=== PATIENT | female | born 1995 | race Caucasian/White ===

== ENCOUNTER 2017-08-08 14:19 | Day surgery (SDC) | payer OTHER ==
[2017-08-08 15:40] VITALS: BMI 35.2
[2017-08-08 15:49] LABS: Amnisure Test No Membranes Rupture (No Rupture)
--- NOTE | 2017-08-08 16:51 | PDOC.LDHP ---
Labor and Delivery H&P Chief complaint: contractions HPI: 21 y/o G1 at 29w2d, patient of Angeles Lemus, presents with discharge since yesterday. Denies any new partners. Discharge has been soaking through her underwear but she has not been using a pad. Denies VB, ctx, or decreased FM. ROS neg for HEENT, cv, pulm, gi, gu, neuro, psych, musculoskeletal or constitutional symptoms other than mentioned above. OB History Details: First Current complications: none Previous surgical history: none Allergies/Adverse Reactions: Allergies Allergy/AdvReac Type Severity Reaction Status Date / Time No Known Allergies Allergy Unverified 08/08/17 15:40 Social history: none - Physical Exam Vital signs reviewed and normal: yes General: NAD, resting Lungs: nonlabored breathing Abdomen: gravid FHT: category 1 (Normal baseline, moderate variability, +10x10 accels, no decels ) [place] contractions every: none - OB Labs Additional Labs: Laboratory Tests 08/08/17 15:35 Amnio Swab Test No Membranes Rupture Microbiology 08/08/17 15:35 Vaginal Vaginitis Screen - Final - + for Kerrie, Gardnerella - for Trichomonas - Assessment 21 y/o G1 at 29w2d with yeast and BV. status reassuring with AGA reactive NST. - Plan -: Given Rx for Flagyl and told to use Monistat 7. D/c home with precautions. Advised to keep all appointments.
== END 2017-08-08 16:48 | disposition home or self-care (01) ==
LOC: L&D/OP 14:19
PROVIDERS: ATTEND Obstetrics & Gynecology
DX: O23.593 Infection of other part of genital tract in pregnancy, third trimester (principal); N76.0 Acute vaginitis; O98.813 Other maternal infectious and parasitic diseases complicating pregnancy, third trimester; B37.9 Candidiasis, unspecified; Z79.899 Other long term (current) drug therapy; Z3A.29 29 weeks gestation of pregnancy
CPT/HCPCS: 84112; 87480; 87510; 87660

== ENCOUNTER 2017-09-04 17:20 | Day surgery (SDC) | payer OTHER ==
[2017-09-04 17:56] VITALS: BMI 36.4
--- NOTE | 2017-09-04 18:14 | PDOC.LDHP ---
Labor and Delivery H&P Chief complaint: abdominal pain, decreased movement HPI: 21 y/o G1 at 33w1d, patient of Dr. Cochran, presents with cramping, low back pain , and decreased movement. Has not had a bowel movement in a week. Has tried eating prunes, raisins, broccoli, and apple juice without success. Denies VB, LOF, ctx, or other concerns. ROS neg for HEENT, cv, pulm, gi, gu, neuro, psych, skin, musculoskeletal or constitutional symptoms other than mentioned above. OB History Details: first Current complications: none Current medications: pre-miki vitamins Previous surgical history: none Allergies/Adverse Reactions: Allergies Allergy/AdvReac Type Severity Reaction Status Date / Time metronidazole [From Flagyl] Allergy Severe Hives Verified 09/04/17 17:55 - Physical Exam Vital signs reviewed and normal: yes General: NAD Lungs: nonlabored breathing Abdomen: gravid Extremeties: no edema FHT: category 1 (140s, mod variability, + accels, no decels) [place] contractions every: none - Vaginal Exam cm dilated: 0 Effacement: 0% Station: -3 - Assessment 21 y/o G1 at 33w1d with constipation and no e/o PTL. status reassuring with reactive NST. - Plan -: D/c home with precautions. Advised to use Miralax or Milk of Magnesia for constipation and stay well hydrated. Follow up as scheduled.
== END 2017-09-04 18:30 | disposition home or self-care (01) ==
LOC: L&D/OP 17:20
PROVIDERS: ATTEND Obstetrics & Gynecology
DX: O99.89 Other specified diseases and conditions complicating pregnancy, childbirth and the puerperium (principal); R10.9 Unspecified abdominal pain; O36.8130 Decreased fetal movements, third trimester, not applicable or unspecified; Z3A.33 33 weeks gestation of pregnancy; Z79.899 Other long term (current) drug therapy; Z88.1 Allergy status to other antibiotic agents

== ENCOUNTER 2017-10-05 09:00 | Inpatient (IN) | payer OTHER ==
[2017-10-05] MEDS ORDERED: Promethazine HCl 25 MG/ML VIAL IM PRN (09:36)
[2017-10-05] MEDS ORDERED: Ibuprofen 800 MG TAB PO PRN (09:36)
[2017-10-05] MEDS ORDERED: Lidocaine 1% (PF) 30 ML VIAL SC PRN (09:36)
[2017-10-05] MEDS ORDERED: LR / Pitocin 40 units/1000 ml 1,000 ML IV PRN (09:36)
[2017-10-05] MEDS ORDERED: HYDROcodone/Acetaminophen 5/325 mg Tablet PO PRN (09:36)
[2017-10-05] MEDS ORDERED: Zolpidem Tartrate 5 MG TAB PO PRN (09:36)
[2017-10-05] MEDS ORDERED: Ondansetron HCl/PF 4 MG/2 ML Vial IVP PRN (09:36)
[2017-10-05] MEDS ORDERED: Acetaminophen 500 MG TAB PO PRN (09:36)
[2017-10-05] MEDS ORDERED: Misoprostol 200 MCG TAB PR PRN (09:36)
[2017-10-05] MEDS: Lactated Ringer's 1,000 ML IV SCH ×3 (11:15→23:44)
[2017-10-05 11:21] VITALS: BMI 39.4
[2017-10-05 11:27] LABS: Hemoglobin 13.5 g/dL (12.0-16.0); Mean Corpuscular HGB CONC 33.6 g/dL (32.0-36.0); Mean Corpuscular Hemoglobin 30.2 pg (27.0-31.0); Mean Corpuscular Volume 89.9 fl (81.0-99.0); Mean Platelet Volume 9.6 fL (7.4-10.4); Platelet Count 184 thou/uL (130-400); RBC Distribution Width 12.5 % (11.5-14.5); Red Blood Cell (RBC) Count 4.48 mill/uL (4.20-5.40); White Blood Cell (WBC) Count 9.4 thou/uL (4.8-10.8)
[2017-10-05] MEDS: Misoprostol 100 MCG TAB VAG SCH ×2 (11:52→15:07)
[2017-10-05 12:03] LABS: Syphilis Antibody Nonreactive (Nonreactive); Syphilis Antibody Index 0.03 S/CO (<1.00 Non-Reactive)
[2017-10-05 12:04] LABS: HBSAg Index 0.17 S/CO (0-0.99); Hep B Surf Ag Non-Reactive S/CO (NonReactive)
[2017-10-05 12:20] LABS: ALT (SGPT) 14 U/L (8-55); AST (SGOT) 36 U/L (5-34); Albumin 3.5 g/dL (3.5-5.0); Alkaline Phosphatase 241 U/L (40-150); Anion Gap 16 mmol/L (10-20); BUN (Urea Nitrogen) 6 mg/dL (7.0-18.7); Bilirubin, Total 0.2 mg/dL (0.2-1.2); Calc. Creatinine Clearance 288 mL/min (70-130); Calcium 9.7 mg/dL (7.8-10.44); Carbon Dioxide 19 mmol/L (22-29); Chloride 105 mmol/L (98-107); Estimated GFR-MDRD Greater than 90; Globulin 3.5 g/dL (2.4-3.5); Glucose 87 mg/dL (70-105); Potassium 5.1 mmol/L (3.5-5.1); Sodium 135 mmol/L (136-145)
[2017-10-05] MEDS ORDERED: Zolpidem Tartrate 5 MG TAB PO SCH (20:15)
[2017-10-06] MEDS: Lactated Ringer's 1,000 ML IV SCH ×2 (05:40→18:37)
--- NOTE | 2017-10-06 08:20 | ULT ---
PRELIMINARY REPORT/[facility]/EMERGENCY AFTER HOURS PROCEDURE: EXAM: US Uterus, Limited CLINICAL HISTORY: 22 years old, female; Signs and symptoms; Lmp or gestational age (in weeks): 37wks; Other: Contractio ns, dm, eval efw, presentation; TECHNIQUE: Real-time ultrasound of the maternal uterus (limited) with image documentation. COMPARISON: No relevant prior studies available. FINDINGS: A single intrauterine is present in vertex presentation with estimated weight of 4330 g, 9 lbs. 9 oz.. heart rate is measured at 135 bpm. RADHA measures 16.3 cm. movement noted . IMPRESSION: Single intrauterine in vertex presentation with estimated weight of 9 lbs. 9 oz. Thank you for allowing us to participate in the care of your patient. Dictated and Authenticated by: Ridge Gary MD 10/06/2017 7:07 AM Central Time ([place] & [place]) FINAL REPORT LIMITED OB ULTRASOUND: I agree with the preliminary report given by Dr. Ridge Gary of [facility]. measurements are as follows: BPD: 9.85 cm (43 weeks and 3 days) HC: 34.91 cm (40 weeks and 4 days) AC: 37.97 cm (41 weeks and 6 days) FL: 7.85 cm (40 weeks and 1 day) Findings correspond to an estimated gestational age of 40 weeks and 5 days and an GWEN of 10/01/2017. The placenta is on the right without placenta previa. POS: [facility]
[2017-10-06] MEDS ORDERED: Bicitra 30 ML UDCUP ONE (09:19)
[2017-10-06] MEDS ORDERED: CEFAZOLIN/Water 2 GM/20 ML SYRINGE ONE (09:19)
[2017-10-06] MEDS ORDERED: Bicitra 30 ML UDCUP PO SCH (09:30)
[2017-10-06] MEDS ORDERED: CEFAZOLIN/Water 2 GM/20 ML SYRINGE SLOW IVP SCH (09:30)
[2017-10-06] MEDS ORDERED: Morphine PF 1 MG/ML SYR ONE (10:38)
[2017-10-06] MEDS ORDERED: PHENYLEPHRINE-NS 100 MCG/ML 10 ML SYRINGE ONE (10:39)
[2017-10-06] MEDS ORDERED: Oxytocin 10 UNITS/ML VIAL ONE (10:39)
[2017-10-06] MEDS ORDERED: EPINEPHrine 1 MG/ML AMP ONE (10:39)
[2017-10-06] MEDS ORDERED: Ondansetron HCl/PF 4 MG/2 ML Vial ONE (10:39)
[2017-10-06] MEDS ORDERED: ePHEDrine/0.9% NaCl/PF SYRINGE 50 mg/10 ml ONE (10:40)
[2017-10-06] MEDS: LR 500 ML/Oxytocin 10 units 500 ML IV SCH ×2 (10:58→10:59)
[2017-10-06] MEDS: Misoprostol 100 MCG TAB VAG SCH ×4 (10:58→19:31)
[2017-10-06] MEDS ORDERED: Adacel (T-DAP) 0.5 ML VIAL IM ONE (11:54)
--- NOTE | 2017-10-06 11:54 | PDOC.OPDEL ---
OB Operative/Delivery Note Delivery Dr/Surgeon: Sammie Assist: Hero Pre-Delivery Diagnosis: scheduled section Procedure/Post Delivery Dx: primary low transverse CS Weeks gestation: 37 Anesthesia: spinal - Findings A Sex: female - 1 min: 8 - 5 min: 8 - Additional Findings/Plan Placenta delivered: manual removal findings: low transverse hysterotomy without extension Estimated blood loss: 500ml Compilations/Other Findings: none Post delivery plan: routine recovery
[2017-10-06] MEDS ORDERED: Bisacodyl 10 MG SUPP PR PRN (11:55)
[2017-10-06] MEDS ORDERED: Lanolin Ointment 7 GM TUBE TOP PRN (11:55)
[2017-10-06] MEDS ORDERED: diphenhydrAMINE 50 MG/ML VIAL IVP PRN (12:56)
[2017-10-06] MEDS ORDERED: Meperidine HCl/PF 25 MG/ML VIAL SLOW IVP PRN (12:56)
[2017-10-06] MEDS ORDERED: Eucerin (Mineral Oil/Petrolatum,White) 30 gm Jar TOP PRN (12:56)
[2017-10-06] MEDS ORDERED: Promethazine HCl 25 MG SUPP PR PRN (12:56)
[2017-10-06] MEDS ORDERED: HYDROmorphone 2 MG/ML VIAL SLOW IVP PRN (12:56)
[2017-10-06] MEDS ORDERED: Ondansetron HCl/PF 4 MG/2 ML Vial IVP PRN ×2 (12:56)
[2017-10-06] MEDS ORDERED: Naloxone HCl 0.4 mg/ml Vial IV PRN (12:56)
[2017-10-06] MEDS ORDERED: Promethazine HCl 25 MG/ML VIAL IM PRN (12:56)
[2017-10-06] MEDS ORDERED: Naloxone HCl 0.4 mg/ml Vial IVP PRN ×2 (12:56)
[2017-10-06] MEDS ORDERED: Communication Order-Pharmacy FS SCH (13:00)
[2017-10-06] MEDS ORDERED: Ketorolac Tromethamine 30 MG/ML VIAL IVP SCH (13:00)
[2017-10-06] MEDS ORDERED: Morphine 10 MG/ML VIAL ONE (13:02)
--- NOTE | 2017-10-06 13:41 | OP ---
DATE OF PROCEDURE: 10/06/2017 PREOPERATIVE DIAGNOSES: 1. A 22-year-old white female G1, P0 at 37 weeks 5 days with mild preeclampsia. 2. Large for gestational infant by sonogram criteria weight of 4300 grams. 3. Unfavorable cervix. 4. Patient desires primary section. POSTOPERATIVE DIAGNOSES: 1. A 22-year-old white female G1, P0 at 37 weeks 5 days with mild preeclampsia. 2. Large for gestational by sonogram criteria weight of 4300 grams. 3. Unfavorable cervix. 4. Patient desires primary section. PROCEDURE PERFORMED: Primary low transverse section without extension. SURGEON: Florecita Cochran M.D. HEAD PORTER SURGEON: Dr. Kim of the [facility]. ANESTHESIA: Spinal block. ESTIMATED BLOOD LOSS: 500 mL COMPLICATIONS: None. COUNTS: Correct x2. ANTIBIOTICS: Two grams [employer]ce[employer] missionary to the OR. FINDINGS: 1. Vigorous female infant, vertex presentation, clear amniotic fluid noted. weight 8 pounds 9 ounces, Apgars 8 and 8. 2. Normal appearing fallopian tubes, uterus, and ovaries. 3. Clear urine present in Zhang catheter post procedure. DISPOSITION: To the recovery room stable. DESCRIPTION OF OPERATIVE PROCEDURE: The patient previously received informed consent in regards to moniqeu olivas. She was taken back to the operating room where she received a spinal block without complicat ions, placed in supine position, prepped and draped in usual sterile fashion. At this time, a Pfanne nstiel incision was made in the lower abdomen and was carried down the fascia. Fascia was nicked in midline. Fascial incision was extended bilaterally using curved Morales scissors. The rectus fascia wa s dissected superiorly and inferiorly off the rectus muscle bellies. The rectus muscle bellies were divided in the midline. The peritoneal cavity was entered. An Javan O retractor was then placed. Bladder flap was created in usual fashion. A 2 cm hysterotomy incision was made in the lower uterine segment, this was extended via finger fractionation. Amniotic bag was ruptured with clear fluid ret urned. The baby was then delivered in the vertex presentation. The mouth and nares were bulb suctio claudy on the abdomen. The cord was doubly clamped and cut and handed to the hr specialist, Dr. Colvin who was in attendance. The usual cord blood sample was obtained. The placenta was manually extracte d and the uterus was externalized. The remaining placental fragments were removed with a dry laparot dennis sponge. The hysterotomy incision was then closed in running locking fashion with #1 Monocryl sut ure securing hemostasis. The uterus returned back in the abdomen. The pelvis was irrigated and suct ioned. The hysterotomy incision again confirmed to be hemostatic. The Javan O retractor was remove d. The pelvis again was inspected with hemostasis being confirmed. The rectus muscle bellies were h emostatic prior to fascial closure. The fascia was closed with 0 PDS suture x2 in running continuous fashion. Subcutaneous tissue was noted to be hemostatic prior to skin approximation with ezra. The surgery was terminated with no anesthetic or surgical complications.
[2017-10-06] MEDS ORDERED: Morphine 4 MG/ML VIAL SLOW IVP PRN (15:12)
[2017-10-06] MEDS: Morphine PF 1 MG/ML SYR IVP PRN ×2 (15:21→17:25)
[2017-10-06] MEDS: Ibuprofen 800 MG TAB PO SCH ×2 (15:49→21:48)
[2017-10-06] MEDS: Docusate Calcium (SURFAK) 240 MG CAP PO SCH (20:13)
[2017-10-06] MEDS: diphenhydrAMINE 25 MG CAP PO PRN (20:14)
[2017-10-06] MEDS: Simethicone Chewable 80 MG TAB PO PRN (20:14)
[2017-10-06] MEDS: Ketorolac Tromethamine 30 MG/ML VIAL IVP PRN (20:14)
[2017-10-06] MEDS: Ferrous Sulfate 325 MG TAB PO SCH (21:48)
[2017-10-07] MEDS: diphenhydrAMINE 25 MG CAP PO PRN ×2 (00:26→04:44)
[2017-10-07] MEDS ORDERED: Zolpidem Tartrate 5 MG TAB PO PRN (01:00)
[2017-10-07] MEDS ORDERED: Acetaminophen/Codeine 30-300mg Tablet PO PRN (01:20)
[2017-10-07] MEDS: Acetaminophen/Codeine 30-300mg Tablet PO PRN ×2 (01:34→07:48)
[2017-10-07] MEDS: Lactated Ringer's 1,000 ML IV SCH ×3 (03:18→18:42)
[2017-10-07] MEDS: Misoprostol 100 MCG TAB VAG SCH ×4 (03:18→18:43)
[2017-10-07] MEDS: Ketorolac Tromethamine 30 MG/ML VIAL IVP PRN (03:54)
[2017-10-07] MEDS: Ibuprofen 800 MG TAB PO SCH ×3 (05:59→22:55)
--- NOTE | 2017-10-07 07:25 | PDOC.PP ---
Post Progress Note Post Day #: postop day 1 Subjective: Patient took tylenol #3 for pain med. Patient refused her AM lab draw Vital Signs (12 hours) Temp Pulse Resp BP 10/07/17 03:45 98.6 F 84 16 123/73 10/06/17 23:55 98.7 F 90 16 119/61 10/06/17 20:00 98.4 F 77 16 127/73 Weight Weight 244 lb - Physical Examination General: NAD Cardiovascular: no m/r/g Respiratory: clear to auscultation bilaterally Abdominal: + bowel sounds, appropriately TTP Skin: CS incision dry & intact (ezra in place) Neurological: no gross focal deficits Psychiatric: A&Ox3, normal affect Result Diagrams: 10/05/17 11:09 10/05/17 11:09 Additional Labs: Post Labs Blood Type B NEGATIVE 10/05/17 11:15 Hep Bs Antigen Non-Reactive S/CO (NonReactive) 10/05/17 11:09 (1) Delivered by section Code(s): O82 - ENCOUNTER FOR DELIVERY WITHOUT INDICATION Status: Acute - Assessment/Plan POD 1 doing well. No evidence metritis. She declined her AM labs. Follow BPs nor now. Routine postop care. HX mild PIH but BPs wnl .
[2017-10-07] MEDS: Prenatal Vitamin 1 TAB PO SCH (07:48)
[2017-10-07] MEDS: Docusate Calcium (SURFAK) 240 MG CAP PO SCH ×2 (07:48→22:55)
[2017-10-07] MEDS: Simethicone Chewable 80 MG TAB PO PRN ×2 (08:55→22:57)
[2017-10-07] MEDS: Ferrous Sulfate 325 MG TAB PO SCH ×2 (10:19→22:55)
[2017-10-07] MEDS ORDERED: HYDROcodone/Acetaminophen 5/325 mg Tablet PO PRN (10:22)
[2017-10-07] MEDS: HYDROcodone/Acetaminophen 5/325 mg Tablet PO PRN ×3 (12:09→19:50)
[2017-10-07] MEDS: LR 500 ML/Oxytocin 10 units 500 ML IV SCH (18:41)
[2017-10-08] MEDS: HYDROcodone/Acetaminophen 5/325 mg Tablet PO PRN ×5 (00:22→23:02)
[2017-10-08] MEDS: Misoprostol 100 MCG TAB VAG SCH ×6 (00:24→23:04)
[2017-10-08] MEDS: Lactated Ringer's 1,000 ML IV SCH ×3 (04:17→17:49)
[2017-10-08] MEDS: Ibuprofen 800 MG TAB PO SCH ×3 (06:32→21:19)
--- NOTE | 2017-10-08 07:11 | PDOC.PP ---
Post Progress Note Post Day #: 2 Subjective: Doing well, no complaints. PO intake tolerated: yes Flatus: yes Ambulation: yes Vital Signs (12 hours) Temp Pulse Resp BP 10/08/17 04:15 98.3 F 75 18 128/82 10/08/17 04:00 98.4 F 78 20 10/08/17 01:00 98.4 F 78 20 10/07/17 20:30 98.3 F 80 20 130/65 10/07/17 20:00 98.4 F 93 20 Weight Weight 244 lb - Physical Examination General: NAD Respiratory: non-labored breathing Abdominal: lochia, no distention, appropriately TTP Extremities: negative homans (B) Skin: CS incision dry & intact, no rash Neurological: no gross focal deficits Psychiatric: A&Ox3, normal affect Result Diagrams: 10/05/17 11:09 10/05/17 11:09 Additional Labs: Post Labs Blood Type B NEGATIVE 10/05/17 11:15 Hep Bs Antigen Non-Reactive S/CO (NonReactive) 10/05/17 11:09 (1) Delivered by section Code(s): O82 - ENCOUNTER FOR DELIVERY WITHOUT INDICATION Status: Acute - Assessment/Plan Continue routine postop management. Anticipate d/c tomorrow.
[2017-10-08] MEDS: Simethicone Chewable 80 MG TAB PO PRN (08:52)
[2017-10-08] MEDS: Docusate Calcium (SURFAK) 240 MG CAP PO SCH ×2 (08:52→21:20)
[2017-10-08] MEDS: Prenatal Vitamin 1 TAB PO SCH (08:52)
[2017-10-08] MEDS: Ferrous Sulfate 325 MG TAB PO SCH ×2 (08:53→17:49)
[2017-10-08] MEDS: LR 500 ML/Oxytocin 10 units 500 ML IV SCH (09:58)
[2017-10-09] MEDS: Misoprostol 100 MCG TAB VAG SCH ×4 (00:51→09:08)
[2017-10-09] MEDS: Lactated Ringer's 1,000 ML IV SCH ×2 (03:07→09:07)
[2017-10-09] MEDS: HYDROcodone/Acetaminophen 5/325 mg Tablet PO PRN ×2 (03:08→12:16)
[2017-10-09] MEDS: Ibuprofen 800 MG TAB PO SCH (06:03)
--- NOTE | 2017-10-09 07:22 | PDOC.PP ---
Post Progress Note Post Day #: 3 Subjective: Doing well. Ready to go home. PO intake tolerated: yes Flatus: yes Ambulation: yes Vital Signs (12 hours) Temp Pulse Resp BP 10/08/17 19:33 97.6 F 66 20 138/86 Weight Weight 244 lb - Physical Examination General: NAD Cardiovascular: no m/r/g, RRR Respiratory: clear to auscultation bilaterally, non-labored breathing Abdominal: + bowel sounds, lochia, no distention, appropriately TTP Result Diagrams: 10/05/17 11:09 10/05/17 11:09 Additional Labs: Post Labs Blood Type B NEGATIVE 10/05/17 11:15 Hep Bs Antigen Non-Reactive S/CO (NonReactive) 10/05/17 11:09 - Assessment/Plan POD #3--doing well. D/c home . Fifi out in office on 10/12 in office.
[2017-10-09 08:44] VITALS: BP 143/87; TEMP 98.9
[2017-10-09] MEDS: Prenatal Vitamin 1 TAB PO SCH (09:03)
[2017-10-09] MEDS: Docusate Calcium (SURFAK) 240 MG CAP PO SCH (09:04)
[2017-10-09] MEDS: Ferrous Sulfate 325 MG TAB PO SCH (09:04)
[2017-10-09] MEDS: LR 500 ML/Oxytocin 10 units 500 ML IV SCH (09:08)
== END 2017-10-09 13:35 | disposition home or self-care (01) | DRG 766 ==
LOC: L&D 10:28 → 3SW 10-06 13:55
PROVIDERS: ADMIT Obstetrics & Gynecology; ATTEND Obstetrics & Gynecology
PROC: 10D00Z1 Extraction of Products of Conception, Low, Open Approach (ICD-10-PCS; principal; 2017-10-06)
PROC: 3E0R3BZ Introduction of Anesthetic Agent into Spinal Canal, Percutaneous Approach (ICD-10-PCS; 2017-10-06)
PROC: 10907ZC Drainage of Amniotic Fluid, Therapeutic from Products of Conception, Via Natural or Artificial Opening (ICD-10-PCS; 2017-10-06)
DX: O34.43 Maternal care for other abnormalities of cervix, third trimester (principal); O14.04 Mild to moderate pre-eclampsia, complicating childbirth; O69.1XX0 Labor and delivery complicated by cord around neck, with compression, not applicable or unspecified; O36.63X0 Maternal care for excessive fetal growth, third trimester, not applicable or unspecified; Z3A.37 37 weeks gestation of pregnancy; Z37.0 Single live birth
CPT/HCPCS: 36415; 51702; 76815; 80053; 81003; 85027; 86780; 86850; 86900; 86901; 87340; 90715; J0171; J0595; J1885; J2270; J2274; J2405; J2590

== ENCOUNTER 2017-10-13 16:28 | Emergency (ER) | payer OTHER ==
[2017-10-13 17:17] LABS: #Basophils 0.1 thou/uL (0.0-0.2); #Eosinphils 0.1 thou/uL (0.0-0.7); #Lymphocytes 1.4 thou/uL (1.20-3.40); %Basophils 0.8 % (0.0-1.0); %Eosinophils 0.9 % (0.0-10.0); %Lymphocytes 18.9 % (21.0-51.0); %Monocytes 13.5 % (0.0-10.0); Hemoglobin 14.2 g/dL (12.0-16.0); Mean Corpuscular HGB CONC 33.7 g/dL (32.0-36.0); Mean Corpuscular Hemoglobin 30.7 pg (27.0-31.0); Mean Corpuscular Volume 90.9 fl (81.0-99.0); Mean Platelet Volume 7.5 fL (7.4-10.4); Platelet Count 313 thou/uL (130-400); RBC Distribution Width 12.2 % (11.5-14.5); Red Blood Cell (RBC) Count 4.63 mill/uL (4.20-5.40); White Blood Cell (WBC) Count 7.6 thou/uL (4.8-10.8)
[2017-10-13 17:36] LABS: ALT (SGPT) 20 U/L (8-55); AST (SGOT) 18 U/L (5-34); Albumin 3.8 g/dL (3.5-5.0); Alkaline Phosphatase 169 U/L (40-150); Anion Gap 14 mmol/L (10-20); BUN (Urea Nitrogen) 12 mg/dL (7.0-18.7); Bilirubin, Total 0.3 mg/dL (0.2-1.2); Calc. Creatinine Clearance 0 mL/min (70-130); Calcium 9.7 mg/dL (7.8-10.44); Carbon Dioxide 25 mmol/L (22-29); Chloride 103 mmol/L (98-107); Estimated GFR-MDRD Greater than 90; Globulin 3.9 g/dL (2.4-3.5); Glucose 81 mg/dL (70-105); Potassium 3.9 mmol/L (3.5-5.1); Protein, Total 7.7 g/dL (6.0-8.3); Sodium 138 mmol/L (136-145)
[2017-10-13 20:40] LABS: Bilirubin Negative (Negative); Blood, Urine Moderate (Negative); Clarity CLEAR (Clear); Glucose, Urine (Dipstick) Negative (Negative); Leukocyte Trace (Negative); Nitrite Negative (Negative); Protein, Urine (Dipstick) 100 mg/dL (Neg-Trace); Specific Gravity, Urine 1.012 (1.002-1.036); Urobilinogen 0.2 mg/dL (0.2-1.0)
[2017-10-13 20:42] LABS: Bacteria/HPF None Seen HPF (None Seen); Hyaline Casts/LPF 0-3 HYALINE CAST LPF (0-3 Hyaline); Squamous Epithelial 0-3 HPF (0-3)
== END 2017-10-13 21:08 | disposition home or self-care (01) ==
LOC: ERS 16:28
DX: O99.89 Other specified diseases and conditions complicating pregnancy, childbirth and the puerperium (principal); K59.00 Constipation, unspecified; O86.20 Urinary tract infection following delivery, unspecified
CPT/HCPCS: 36415; 80053; 81003; 81015; 85025; 87040; 96360

== ENCOUNTER 2018-01-23 14:12 | Emergency (ER) | payer OTHER, SELFPAY ==
[2018-01-23] MEDS ORDERED: Ketorolac Tromethamine 30 MG/ML VIAL ONE (15:28)
[2018-01-23] MEDS ORDERED: Ibuprofen 200 MG TAB ONE (15:49)
[2018-01-23 15:56] LABS: Bilirubin Negative (Negative); Blood, Urine Negative (Negative); Clarity CLEAR (Clear); Glucose, Urine (Dipstick) Negative (Negative); Leukocyte Small (Negative); Nitrite Negative (Negative); Pregnancy Test - Urine (BHCG) Negative (Negative); Pregu Control Background? CLEAR/WHITE (CLR/WHITE); Pregu Control Bar Appear? YES (CONTROL BAR); Protein, Urine (Dipstick) Negative (Neg-Trace); Specific Gravity 1.028 (1.002-1.036); Specific Gravity, Urine 1.028 (1.002-1.036); Urobilinogen 0.2 mg/dL (0.2-1.0)
[2018-01-23 15:59] LABS: Bacteria/HPF 1+ HPF (None Seen); Hyaline Casts/LPF 0-3 HYALINE CAST LPF (0-3 Hyaline); Pathc Cast-AUWi Flag 0.14 (0-2.49); RBC/HPF 0-3 HPF (0-3)
--- NOTE | 2018-01-23 21:27 | RAD ---
LUMBAR SPINE THREE VIEWS: History: 22-year-old female with history of low back pain for several weeks. FINDINGS: Disc spaces are adequately preserved. No evidence for acute fracture or dislocation or significant ma lalignment. IMPRESSION: Unremarkable lumbar spine. POS: [facility]
--- NOTE | 2018-01-23 21:28 | RAD ---
THORACIC SPINE THREE VIEWS: History: 22-year-old female with history of back pain for several weeks without known injury. FINDINGS: No evidence for acute fracture or dislocation. No focal bone lesions. No significant malalignment. IMPRESSION: Unremarkable thoracic spine. POS: [facility]
== END 2018-01-23 16:27 | disposition home or self-care (01) ==
LOC: ERS 14:12
DX: N39.0 Urinary tract infection, site not specified (principal)
CPT/HCPCS: 72072; 72100; 81003; 81015; 81025; 87086; J1885

== ENCOUNTER 2019-12-20 19:28 | Emergency (ER) | payer OTHER ==
[2019-12-20] MEDS ORDERED: Ondansetron PF 4 MG/2 ML Vial ONE (20:38)
[2019-12-20 21:18] LABS: BHCG - Serum Negative (NEGATIVE); Pregs Control Background? CLEAR/WHITE (CLR/WHITE); Pregs Control Bar Appear? YES (CONTROL BAR)
[2019-12-20 21:19] LABS: Bilirubin Small (Negative); Blood, Urine Negative (Negative); Glucose, Urine (Dipstick) Negative (Negative); Leukocyte Trace (Negative); Nitrite Negative (Negative); Protein, Urine (Dipstick) 30 mg/dL (Neg-Trace)
[2019-12-20 21:20] LABS: Clarity Hazy (Clear)
[2019-12-20 21:22] LABS: Mean Corpuscular HGB CONC 33.6 g/dL (32.0-36.0); Mean Corpuscular Volume 83.5 fL (78.0-98.0); Mean Platelet Volume 8.5 fL (7.4-10.4); Platelet Count 227 thou/uL (130-400); RBC Distribution Width 12.5 % (11.5-14.5); Red Blood Cell (RBC) Count 4.98 mill/uL (4.20-5.40)
[2019-12-20 21:23] LABS: Bacteria/HPF 1+ HPF (None Seen)
[2019-12-20 21:32] LABS: ALT (SGPT) 14 U/L (8-55); AST (SGOT) 15 U/L (5-34); Albumin 4.6 g/dL (3.5-5.0); Alkaline Phosphatase 101 U/L (40-110); Anion Gap 13 mmol/L (10-20); BUN (Urea Nitrogen) 9 mg/dL (7.0-18.7); Bilirubin, Total 0.4 mg/dL (0.2-1.2); Calc. Creatinine Clearance 0 mL/min (70-130); Calcium 9.4 mg/dL (7.8-10.44); Carbon Dioxide 26 mmol/L (22-29); Chloride 102 mmol/L (98-107); Estimated GFR-MDRD Greater than 90; Globulin 3.5 g/dL (2.4-3.5); Glucose 99 mg/dL (70-105); Lipase 26 U/L (8-78); Potassium 3.4 mmol/L (3.5-5.1); Protein, Total 8.1 g/dL (6.0-8.3); Sodium 138 mmol/L (136-145)
[2019-12-20 21:34] LABS: Band 4 % (5-11); Lymphocytes 24 % (21-51); MDiff Complete? YES; Monocytes 12 % (0-10); Neutrophil 59 % (42-75); White Blood Cell (WBC) Count 4.7 thou/uL (4.8-10.8)
[2019-12-20] MEDS ORDERED: Nitrofurantoin Macrocrystal 50 MG CAP PO SCH (22:00)
== END 2019-12-20 22:25 | disposition home or self-care (01) ==
LOC: ERS 19:28
DX: N39.0 Urinary tract infection, site not specified (principal); R11.2 Nausea with vomiting, unspecified
CPT/HCPCS: 80053; 81003; 81015; 83690; 84703; 85025; 87086; 96361; 96374; J2405

== ENCOUNTER 2021-12-05 19:33 | Emergency (ER) | payer OTHER ==
[2021-12-05 20:31] LABS: #Eosinphils 0.1 thou/uL (0.0-0.7); #Monocytes 0.7 thou/uL (0.11-0.59); #Neutrophils 7.3 thou/uL (1.40-6.50); %Basophils 0.4 % (0.0-1.0); %Eosinophils 0.6 % (0.0-10.0); %Lymphocytes 19.9 % (21.0-51.0); %Monocytes 6.7 % (0.0-10.0); %Neutrophils 72.3 % (42.0-75.0); Hemoglobin 12.7 g/dL (12.0-16.0); Mean Corpuscular HGB CONC 33.7 g/dL (32.0-36.0); Mean Corpuscular Hemoglobin 28.3 pg (27.0-31.0); Mean Corpuscular Volume 83.9 fL (78.0-98.0); Mean Platelet Volume 7.6 fL (7.4-10.4); Platelet Count 310 thou/uL (130-400); RBC Distribution Width 13.2 % (11.5-14.5); Red Blood Cell (RBC) Count 4.48 mill/uL (4.20-5.40); White Blood Cell (WBC) Count 10.1 thou/uL (4.8-10.8)
[2021-12-05 21:17] LABS: Bacteria/HPF None Seen HPF (None Seen); Bilirubin Negative (Negative); Blood, Urine 2+ (Negative); Clarity Clear (Clear); Glucose, Urine (Dipstick) Normal (Negative); Ketone, Urine Negative (Negative); Leukocyte 25 Leu/uL (Negative); Nitrite Negative (Negative); Protein, Urine (Dipstick) Negative (Neg-Trace); RBC/HPF 0-3 HPF (0-3); Specific Gravity, Urine 1.017 (1.002-1.036); Urobilinogen Normal mg/dL (Less than 2); WBC/HPF 0-3 HPF (0-3)
== END 2021-12-05 21:52 | disposition home or self-care (01) ==
LOC: ERS 19:33
DX: O20.0 Threatened abortion (principal); Z3A.01 Less than 8 weeks gestation of pregnancy
CPT/HCPCS: 36415; 76856; 81003; 81015; 84702; 85025; 86900; 86901

== ENCOUNTER 2021-12-07 14:13 | Emergency (ER) | payer OTHER | END 2021-12-07 15:59 | disposition left against medical advice (07) | LOC: ERS 14:13 | DX: Z53.21 Procedure and treatment not carried out due to patient leaving prior to being seen by health care provider (principal) ==

== ENCOUNTER → 2023-07-27 10:05 | Emergency (ER) | payer OTHER, SELFPAY | END | disposition left against medical advice (07) | LOC: ERS 10:05 | DX: Z53.21 Procedure and treatment not carried out due to patient leaving prior to being seen by health care provider (principal) ==